=== PATIENT | female | born 1985 | race African-American/Black ===

== ENCOUNTER → 2020-05-06 | Emergency (ER) | payer OTHER ==
[~2020-05-06] VITALS: Ht 160 cm; Wt 81.6 kg
[~2020-05-06] MED LIST: IBUPROFEN 600 MG TABLET ONE; IBUPROFEN 600 MG TABLET PO ONE; ONDANSETRON 4 MG TAB.RAPDIS ONE; ONDANSETRON 4 MG TAB.RAPDIS PO ONE
[2020-05-06 16:15] VITALS: BP 122/65
--- NOTE | 2020-05-06 19:51 | NUR ---
Patient discharged to home in stable condition. rX AND Written and verbal after care instructions given. Patient verbalizes understanding of instruction.
== END | disposition home or self-care (01) ==
LOC: ER 16:04
DX: U07.1 COVID-19 (principal); J12.89 Other viral pneumonia
CPT/HCPCS: 71045; 99283; Q0162